=== PATIENT | female | born 1950 | race Caucasian/White ===

== ENCOUNTER → 2017-05-28 | Outpatient (CLI) | payer OTHER | LOC: CAT 10:07 | DX: Z13.6 Encounter for screening for cardiovascular disorders (principal) ==

== ENCOUNTER → 2017-10-15 | Outpatient (CLI) | payer BC, OTHER | LOC: RAD 01:07 | DX: R92.1 Mammographic calcification found on diagnostic imaging of breast (principal) ==

== ENCOUNTER → 2018-03-29 | Outpatient (CLI) | payer BC, OTHER | LOC: NUC 09:33 | DX: M85.89 Other specified disorders of bone density and structure, multiple sites (principal); Z78.0 Asymptomatic menopausal state ==

== ENCOUNTER → 2018-04-19 | Outpatient (CLI) | payer BC, OTHER | LOC: RAD 01:12 | DX: R92.8 Other abnormal and inconclusive findings on diagnostic imaging of breast (principal) ==

== ENCOUNTER → 2019-05-17 | Outpatient (CLI) | payer OTHER ==
--- NOTE | 2019-05-19 14:07 | PATH ---
[facility] [address] [place] [address] PATHOLOGY RPT PROCEDURE Name: SANDRA MEDEIROS Room #: REG [facility] MMoniqueR.#: [id number] Admission: 05/17/19 Date of : 54 Discharge: Report #: [id number] Path Case #: [id number] [facility] Accession Number: [id number] . 01 Material submitted: . breast - LEFT POSTERIOR CENTRAL BREAST CALCIFICATIONS. Modifiers: left, posterior, central . 01 Clinical history: . Left breast calcifications . 02 Diagnosis: Breast, left, stereotactic - guided core needle biopsy: - Fibroadenoma with focal coarse calcifications. - Mild chronic inflammation. - No evidence of atypia or malignancy. . (Please see comment) [facility] 05/18/2019 1514 Local . 02 Comment: This case has also been reviewed by Salomon Echevarria M.D. who agrees with the diagnosis. (ANDRE/maico; 05/18/2019) . 02 Electronically signed: . Antonio Walter MD, Pathologist NPI- [id number] . 01 Gross description: . The specimen is received in formalin, labeled "Sandra Medeiros, left". The specimen is additionally labeled on the requisition as, "left posterior central". Received are multiple needle cores of fibrofatty tissue measuring 5.2 x 2.8 x 0.3 cm in aggregate dimensions. Also received with the containers a plastic cassette containing multiple needle cores measuring 2.4 x 2.0 x 0.5 cm in aggregate dimensions. The suspect tissue is transferred to cassette A1 and remainder of the tissue is submitted in cassettes A2 through A5. The cold ischemic time is 3 minutes. The total formalin fixation time is 10 hours and 32 minutes. ([facility]; 05/17/2019) QAC/QAC 05/17/2019 1640 Local . 02 Pathologist provided ICD-10: D24.2, N61.0 . 02 CPT . [id number] [address] [address] PATHOLOGY RPT PROCEDURE Name: SANDRA MEDEIROS [id number]mission: 05/17/19 Date of : 54 Discharge: Report #: [id number] Path Case #: [id number] Specimen Comment: A courtesy copy of this report has been sent to [phone] Specimen Comment: [phone] Specimen Comment: Report sent to / DR MEJÍA Performed at: 01 [facility] [address] [place] [address] [address], [place], [place] [id number] MD Steven Alanis MD Phone: [phone] Performed at: [address] [id number] MD Andreea Hardy MD Phone: [phone]
== END | disposition home or self-care (01) ==
LOC: RAD 10:37
DX: R92.1 Mammographic calcification found on diagnostic imaging of breast (principal); D24.2 Benign neoplasm of left breast; N61.0 Mastitis without abscess

== ENCOUNTER → 2019-06-08 | Outpatient (CLI) | payer OTHER | LOC: ULTRA 09:32 | DX: N60.01 Solitary cyst of right breast (principal) ==

== ENCOUNTER → 2020-01-19 | Outpatient (CLI) | payer OTHER | LOC: BC 10:52 | PROVIDERS: ATTEND Obstetrics & Gynecology Obstetrics | DX: R92.1 Mammographic calcification found on diagnostic imaging of breast (principal) ==

== ENCOUNTER → 2020-04-19 | Outpatient (CLI) | payer OTHER | LOC: NUC 09:15 | PROVIDERS: ATTEND Obstetrics & Gynecology Obstetrics | DX: M85.88 Other specified disorders of bone density and structure, other site (principal); Z01.419 Encounter for gynecological examination (general) (routine) without abnormal findings ==

== ENCOUNTER → 2020-06-27 | Outpatient (CLI) | payer OTHER | LOC: RAD 11:05 | PROVIDERS: ATTEND Family Medicine | DX: Z13.6 Encounter for screening for cardiovascular disorders (principal); E78.00 Pure hypercholesterolemia, unspecified; I25.10 Atherosclerotic heart disease of native coronary artery without angina pectoris ==

== ENCOUNTER → 2020-07-26 | Outpatient (CLI) | payer OTHER | LOC: BC 08:43 | PROVIDERS: ATTEND Obstetrics & Gynecology Obstetrics | DX: Z12.31 Encounter for screening mammogram for malignant neoplasm of breast (principal) ==